=== PATIENT | female | born 1950 | race African-American/Black ===

== ENCOUNTER 2017-01-04 05:50 | Day surgery (SDC) | payer BC ==
--- NOTE | ~2017-01-04 | EGD ---
EGD REPORT [facility] [address] [address] NAME: ASHLEIGH SANTO : [birth year] STATUS : REG [facility] [place] PAT#: [id number] AGE: 66 ADM/REG DATE : 01/04/17 MR#: [id number] REPORT SERV DATE: 01/04/17 DICTATED BY: DENIS BELTRAN DATE: 01/04/17 REPORT STATUS : Draft [facility] DATE: 01/04/17 Endoscopy Center Patient Name: Asheligh Santo Date of : 1950 Attending MD: DENIS BELTRAN MD Procedure Date No Time: 01/04/2017 Procedure: Upper GI endoscopy Indications: Epigastric abdominal pain, Nausea Referring MD: TALA AUSTIN Medicines: Propofol per Anesthesia Complications: No immediate complications. Procedure: Pre-Anesthesia Assessment: - ASA Grade Assessment: III - A patient with severe systemic disease. After obtaining informed consent, the endoscope was passed under direct vision. Throughout the procedure, the patient's blood pressure, pulse, and oxygen saturations were monitored continuously. The GIF H190 [id number] was introduced through the mouth, and advanced to the second part of duodenum. The upper GI endoscopy was accomplished without difficulty. The patient tolerated the procedure well. Findings: The examined esophagus was normal. Diffuse mild inflammation characterized by erosions and erythema was found in the stomach. Biopsies were taken with a cold forceps for histology. The examined duodenum was normal. Impression: - Normal esophagus. - Chronic gastritis. Biopsied. - Normal examined duodenum. Recommendation: - Discharge patient to home (ambulatory). Procedure Code(s): --- Professional --- 76088, Esophagogastroduodenoscopy, flexible, transoral; with biopsy, single or multiple Diagnosis Code(s): --- Professional --- K29.50, Unspecified chronic gastritis without bleeding R10.13, Epigastric pain R11.0, Nausea EGD REPORT [facility] [address] [facility] [place]. [address] NAME: ASHLEIGH SANTO : [birth year] STATUS : REG [facility] [place] PAT#: [id number] AGE: 66 ADM/REG DATE : 01/04/17 MR#: [id number] REPORT SERV DATE: 01/04/17 DICTATED BY: DENIS BELTRAN. DATE: 01/04/17 REPORT STATUS : Draft TRANSCRIBED BY: [employer] DATE: 01/04/17 CPT copyright 2013 [employer]. All rights reserved. The codes documented in this report are preliminary and upon medical biller/coder review may be revised to meet current compliance requirements. Denis Beltran MD DENIS BELTRAN MD 01/04/2017 8:35 AM This report has been signed electronically. Number of Addenda: 0 Note Initiated On: 01/04/2017 8:19 AM Scope Withdrawal Time 0 hours 0 minutes 0 seconds [address] [facility] [place] [id number]
--- NOTE | ~2017-01-04 | EGD ---
EGD REPORT [facility] [address] [address] NAME: ASHLEIGH SANTO : [birth year] STATUS : REG [facility] [place] PAT#: [id number] AGE: 66 ADM/REG DATE : 01/04/17 MR#: [id number] REPORT SERV DATE: 01/04/17 DICTATED BY: DENIS BELTRAN DATE: 01/04/17 REPORT STATUS : Draft [facility]: [facility] DATE: 01/04/17 Endoscopy Center Patient Name: Ashleigh Santo Date of : 1950 Attending MD: DENIS BELTRAN MD Procedure Date No Time: 01/04/2017 Procedure: Colonoscopy Indications: Generalized abdominal pain Referring MD: TALA AUSTIN Medicines: Propofol per Anesthesia Complications: No immediate complications. Procedure: Pre-Anesthesia Assessment: - ASA Grade Assessment: III - A patient with severe systemic disease. After I obtained informed consent, the scope was passed under direct vision. Throughout the procedure, the patient's blood pressure, pulse, and oxygen saturations were monitored continuously. The PCF [id number] was introduced through the anus and advanced to the cecum, identified by appendiceal orifice and ileocecal valve. The colonoscopy was performed without difficulty. The patient tolerated the procedure well. The quality of the bowel preparation was good. Findings: The perianal and digital rectal examinations were normal. A sessile polyp was found at the hepatic flexure. The polyp was 5 mm in size. The polyp was removed with a cold biopsy forceps. Resection and retrieval were complete. There was a medium-sized lipoma, in the descending colon. Biopsies were taken with a cold forceps for histology. Multiple medium-mouthed diverticula were found in the recto-sigmoid colon and in the sigmoid colon. Internal hemorrhoids were found during retroflexion and were Grade I (internal hemorrhoids that do not prolapse). The rest of the colon was normal. Impression: - One 5 mm polyp at the hepatic flexure. Resected and retrieved. - Medium-sized lipoma in the descending colon. Biopsied. - Diverticulosis in the recto-sigmoid colon and in the sigmoid colon. - Internal hemorrhoids. Recommendation: - Discharge patient to home (ambulatory). EGD REPORT [address] [address] NAME: ASHLEIGH SANTO : [birth year] STATUS : REG [facility]#: [id number] AGE: 66 ADM/REG DATE : 01/04/17 MR#: [id number] REPORT SERV DATE: 01/04/17 DICTATED BY: DENIS BELTRAN DATE: 01/04/17 REPORT STATUS : Draft TRANSCRIBED BY: [employer] DATE: 01/04/17 - Return to nurse practitioner in 3 weeks. Procedure Code(s): --- Professional --- 18764, Colonoscopy, flexible, proximal to splenic flexure; with biopsy, single or multiple Diagnosis Code(s): --- Professional --- D12.3, Benign neoplasm of transverse colon D17.5, Benign lipomatous neoplasm of intra-abdominal organs K64.0, First degree hemorrhoids K57.30, Diverticulosis of large intestine without perforation or abscess without bleeding R10.84, Generalized abdominal pain CPT copyright 2013 [employer]. All rights reserved. The codes documented in this report are preliminary and upon furnace mechanic helper review may be revised to meet current compliance requirements. Denis Beltran MD DENIS BELTRAN MD 01/04/2017 8:48 AM This report has been signed electronically. Number of Addenda: 0 Note Initiated On: 01/04/2017 7:15 AM Scope Withdrawal Time 0 hours 6 minutes 17 seconds [address] [id number]
[~2017-01-04 05:50] MED LIST: BUSPAR10 PO; EZFE 200200 MG PO; MAX25 PO; MICRO-K10 MEQ PO; PREV30 PO; VASOTEC10 PO; VASOTEC20 MG PO; ZOL100 PO
[2017-01-04 08:10] LABS: BUN (BLOOD UREA NITROGEN) 16 MG/DL (6-23); CALCIUM, SERUM 10.2 MG/DL (8.5-10.4); CHLORIDE, SERUM 103 MMOL/L (96-112); CO2 (CARBON DIOXIDE) 29 MMOL/L (24-34); CREATININE 1.29 MG/DL (0.55-1.02); GFR AFRICAN AMERICAN 50 ML/MIN (>=60); GFR NON AFRICAN AMERICAN 43 ML/MIN (>=60); GLUCOSE, SERUM 91 MG/DL (60-99); POTASSIUM, SERUM 3.5 MMOL/L (3.5-5.3); SODIUM, SERUM 141 MMOL/L (135-148)
== END 2017-01-04 23:59 | disposition home or self-care (01) ==
LOC: DMU 05:50
PROVIDERS: Anesthesiology; Internal Medicine Gastroenterology
PROC: 0DB68ZX Excision of Stomach, Via Natural or Artificial Opening Endoscopic, Diagnostic (ICD-10-PCS; 2017-01-04)
PROC: 0DBL8ZX Excision of Transverse Colon, Via Natural or Artificial Opening Endoscopic, Diagnostic (ICD-10-PCS; principal; 2017-01-04 07:30)
PROC: 0DBM8ZX Excision of Descending Colon, Via Natural or Artificial Opening Endoscopic, Diagnostic (ICD-10-PCS; 2017-01-04 07:30)
DX: D12.3 Benign neoplasm of transverse colon (principal); I10 Essential (primary) hypertension; M79.7 Fibromyalgia; E87.6 Hypokalemia; F41.9 Anxiety disorder, unspecified; I49.3 Ventricular premature depolarization; D64.9 Anemia, unspecified; E66.9 Obesity, unspecified; Z91.040 Latex allergy status; Z79.899 Other long term (current) drug therapy; Z96.612 Presence of left artificial shoulder joint; Z98.41 Cataract extraction status, right eye; Z88.5 Allergy status to narcotic agent; Z88.8 Allergy status to other drugs, medicaments and biological substances; Z98.42 Cataract extraction status, left eye; Z90.710 Acquired absence of both cervix and uterus; Z98.890 Other specified postprocedural states
CPT/HCPCS: 80048; 88305